=== PATIENT | male | born 1960 | race Caucasian/White ===

== ENCOUNTER 2017-05-21 12:45 | Inpatient (IN) | payer OTHER ==
[~2017-05-21] VITALS: Ht 172.7 cm; Wt 81.6 kg
[2017-05-21] MEDS ORDERED: AVAPRO300 MG PO (15:26)
[2017-05-21] MEDS ORDERED: HUMALOG100 UNIT/1 (15:26)
[2017-05-21] MEDS ORDERED: CELEBREX200MG PO (15:27)
[2017-05-21] MEDS ORDERED: HUMULIN N100 UNIT/2 (15:27)
[2017-05-21] MEDS ORDERED: GABAPENTIN800 MG PO (15:28)
[2017-05-21] MEDS ORDERED: TRICOR145 MG PO (15:28)
[2017-05-21] MEDS ORDERED: JANUMET 50-5001 EACH PO (15:28)
[2017-05-21] MEDS ORDERED: PERCOCET 10-321 EACH PO (15:29)
[2017-05-21] MEDS ORDERED: CLONAZEPAM2 MG PO (15:29)
[2017-05-24] MEDS ORDERED: PERCOCET 5-3251 EACH PO (09:56)
[2017-05-24] MEDS ORDERED: DOCUSATE SODIU100 MG PO (09:56)
[2017-05-24] MEDS ORDERED: CLONAZEPAM2 MG PO (09:56)
== END 2017-05-25 15:31 | disposition home or self-care (01) | DRG 472 ==
LOC: O/R 05-24 05:30 → SURG 05-24 05:30 → SURH 05-24 07:00 → SURG 05-24 15:53 → SEC-K 05-24 16:04 → SURG 05-24 16:06
PROVIDERS: Orthopaedic Surgery Orthopaedic Surgery of the Spine
PROC: 0RG20A0 Fusion of 2 or more Cervical Vertebral Joints with Interbody Fusion Device, Anterior Approach, Anterior Column, Open Approach (ICD-10-PCS; 2017-05-24)
PROC: 0RT30ZZ Resection of Cervical Vertebral Disc, Open Approach (ICD-10-PCS; principal; 2017-05-24 07:00)
DX: M47.12 Other spondylosis with myelopathy, cervical region (principal); M50.023 Cervical disc disorder at C6-C7 level with myelopathy; E11.9 Type 2 diabetes mellitus without complications; I10 Essential (primary) hypertension

== ENCOUNTER 2017-07-05 12:28 | Outpatient (CLI) | payer OTHER ==
[~2017-07-05 12:28] MED LIST: AVAPRO300 MG PO; CELEBREX200MG PO; CLONAZEPAM2 MG PO; DOCUSATE SODIU100 MG PO; GABAPENTIN800 MG PO; HUMALOG100 UNIT/1; HUMULIN N100 UNIT/2; JANUMET 50-5001 EACH PO; PERCOCET 10-321 EACH PO; PERCOCET 5-3251 EACH PO; TRICOR145 MG PO
== END 2017-07-05 12:31 | disposition home or self-care (01) ==
LOC: RAD 12:28
DX: M50.30 Other cervical disc degeneration, unspecified cervical region (principal); Z98.1 Arthrodesis status

== ENCOUNTER 2017-12-28 22:51 | Emergency (ER) | payer OTHER ==
[~2017-12-28] VITALS: Ht 172.7 cm; Wt 83.9 kg
[2017-12-29] MEDS ORDERED: ORPHENADRINE C100 MG PO (02:14)
[2017-12-29] MEDS ORDERED: KETO10TA2 PO (02:14)
== END 2017-12-29 02:41 | disposition home or self-care (01) ==
LOC: ER 22:51
DX: S13.8XXA Sprain of joints and ligaments of other parts of neck, initial encounter (principal); W01.198A Fall on same level from slipping, tripping and stumbling with subsequent striking against other object, initial encounter; Y93.89 Activity, other specified; Y92.018 Other place in single-family (private) house as the place of occurrence of the external cause; Y99.8 Other external cause status

== ENCOUNTER 2019-03-31 11:23 | Emergency (ER) | payer OTHER ==
[~2019-03-31] VITALS: Ht 172.7 cm; Wt 83.9 kg
[~2019-03-31 11:23] MED LIST changes: +KETO10TA2 PO; +ORPHENADRINE C100 MG PO
== END 2019-03-31 14:53 | disposition home or self-care (01) ==
LOC: ER 11:23
DX: N28.1 Cyst of kidney, acquired (principal); K57.30 Diverticulosis of large intestine without perforation or abscess without bleeding; M54.5 Low back pain

== ENCOUNTER 2022-05-02 08:39 | Outpatient (CLI) | payer OTHER | END 2022-05-02 08:45 | disposition home or self-care (01) | LOC: RX STUDY 08:39 | PROVIDERS: ATTEND Otolaryngology Plastic Surgery within the Head & Neck | DX: R13.19 Other dysphagia (principal) ==

== ENCOUNTER 2022-11-06 11:38 | Emergency (ER) | payer OTHER ==
[~2022-11-06] VITALS: Ht 172.7 cm; Wt 83.9 kg
== END 2022-11-06 15:46 | disposition home or self-care (01) ==
LOC: ER 11:38
DX: R00.2 Palpitations (principal); R53.1 Weakness